=== PATIENT | male | born 1985 | race American Indian/Alaskan Native ===

== ENCOUNTER 2018-09-13 00:42 | Emergency (ER) | payer OTHER ==
[2018-09-13] MEDS ORDERED: NACL 0.9% 1000 ML 1,000 ML IV ONE (01:32)
[2018-09-13 01:59] LABS: Basophils % (Auto) 0.3 % (0.0-1.8); Eosinophils # (Auto) 0.3 K/mm3 (0.0-0.4); Eosinophils % (Auto) 5.6 % (0.0-4.3); Hematocrit 37.8 % (35.5-45.6); Hemoglobin 12.3 gm/dl (11.8-15.2); Lymphocytes # (Auto) 1.6 K/mm3 (1.2-5.4); Lymphocytes % (Auto) 30.5 % (13.4-35.0); Mean Corpuscular HGB Conc 33 % (32-34); Mean Corpuscular Volume 83 fl (84-94); Monocytes # (Auto) 0.5 K/mm3 (0.0-0.8); Monocytes % (Auto) 9.2 % (0.0-7.3); Platelet Count 274 K/mm3 (140-440); Red Blood Count 4.55 M/mm3 (3.65-5.03); Red Cell Distribution Width 14.1 % (13.2-15.2)
[2018-09-13 02:15] LABS: Alanine Aminotransferase 10 units/L (7-56); Albumin 3.4 g/dL (3.9-5); BUN/Creatinine Ratio 10; Blood Urea Nitrogen 7 mg/dL (9-20); Calcium 8.8 mg/dL (8.4-10.2); Hemolysis Index 11
[2018-09-13 02:39] LABS: Bilirubin,Urine NEG (Negative); Blood,Urine NEG (Negative); Color,Urine Straw (Yellow); Protein,Urine <15 mg/dL mg/dL (Negative); RBC,Urine < 1.0 /HPF (0.0-6.0); Urobilinogen,Urine < 2.0 mg/dL (<2.0)
[2018-09-13 02:55] LABS: WBC,Urine < 1.0 /HPF (0.0-6.0)
--- NOTE | 2018-09-13 09:36 | Emergency Department Report ---
ED Abdominal Pain HPI - General Chief Complaint: Abdominal Pain Stated Complaint: CHEST PAIN/HEADACHE Time Seen by Provider: 09/13/18 09:14 Source: patient Mode of arrival: Ambulatory Limitations: No Limitations - History of Present Illness Initial Comments: Mr. Florez is a very pleasant 33-year-old male with a history of chronic rectal pain for 2-3 years. He explained to me that for 2-3 years he had daily rectal pain with intermittent rectal discharge and bleeding. He now has a job which provides health insurance. He was evaluated by my colleague last fall. He was referred to Dr. Kay postpartum nurse at [place]. After colonscopy, Dr. Merissa duncan gave Mr. Florez of Crohn disease. He is awaiting MRI to be performed this week for further evaluation. Diagnosis: rectal abscess with rectal hemorrhoids. He finished a course of antibiotics. Has severe recurrent pain in the rectal region. Denies fever. He also has mild left flank left upper abdominal crampy pain. Headache generalized mild frontal headache which he attributes to general illness. Prior to receiving medical care, he self treated with vegetarian diet. His new job requires him to lift heavy loads > 100 pounds. No significant family history MD Complaint: abdominal pain, other (rectal pain) -: year(s) (2-3) Location: L flank Radiation: none Severity: severe Severity scale (0 -10): 8 Quality: cramping, sharp Consistency: constant Improves With: nothing Worsens With: bowel movement Associated Symptoms: constipation - Related Data Previous Rx's Medication Instructions Recorded Last Taken Type Ciprofloxacin HCl [Cipro] 500 mg PO BID #20 tablet 07/04/18 Unknown Rx Hydrocortisone [Anusol-Hc] 1 applic RC BID #30 cream..g. 07/04/18 Unknown Rx metroNIDAZOLE [Flagyl] 500 mg PO Q12HR #20 tab 07/04/18 Unknown Rx Docusate Sodium [Colace] 100 mg PO BID 10 Days #20 capsule 09/13/18 Unknown Rx HYDROcodone/ACETAMINOPHEN [[place] 1 each PO Q6H #10 tablet 09/13/18 Unknown Rx 5-325 Tablet] Prednisone [predniSONE 10 mg 10 mg PO .TAPER #1 tab.ds.pk 09/13/18 Unknown Rx (6-Day Pack, 21 Tabs)] Allergies Allergy/AdvReac Type Severity Reaction Status Date / Time Penicillins Allergy Hives Verified 07/04/18 20:29 ED Review of Systems ROS: Stated complaint: CHEST PAIN/HEADACHE Other details as noted in HPI Comment: All other systems reviewed and negative Constitutional: denies: fever, malaise Respiratory: denies: cough Cardiovascular: denies: chest pain ED Past Medical Hx - Past Medical History Previous Medical History?: No - Surgical History Past Surgical History?: Yes Additional Surgical History: rectal abcess - Social History Smoking Status: Never Smoker Substance Use Type: Alcohol - Medications Home Medications: Home Medications Medication Instructions Recorded Confirmed Last Taken Type Ciprofloxacin HCl [Cipro] 500 mg PO BID #20 tablet 07/04/18 Unknown Rx Hydrocortisone [Anusol-Hc] 1 applic RC BID #30 cream..g. 07/04/18 Unknown Rx metroNIDAZOLE [Flagyl] 500 mg PO Q12HR #20 tab 07/04/18 Unknown Rx Docusate Sodium [Colace] 100 mg PO BID 10 Days #20 capsule 09/13/18 Unknown Rx HYDROcodone/ACETAMINOPHEN [[place] 1 each PO Q6H #10 tablet 09/13/18 Unknown Rx 5-325 Tablet] Prednisone [predniSONE 10 mg 10 mg PO .TAPER #1 tab.ds.pk 09/13/18 Unknown Rx (6-Day Pack, 21 Tabs)] ED Physical Exam - General Limitations: No Limitations General appearance: alert, in no apparent distress - Head Head exam: Present: atraumatic, normocephalic - Eye Eye exam: Present: normal appearance - ENT ENT exam: Present: mucous membranes moist - Neck Neck exam: Present: normal inspection, full ROM. Absent: tenderness, meningismus - Respiratory Respiratory exam: Present: normal lung sounds bilaterally. Absent: respiratory distress, wheezes, rales, rhonchi - Cardiovascular Cardiovascular Exam: Present: regular rate, normal rhythm, normal heart sounds. Absent: systolic murmur, diastolic murmur, rubs, gallop - GI/Abdominal GI/Abdominal exam: Present: soft, normal bowel sounds. Absent: distended, tenderness, guarding, rebound - Rectal Rectal exam: Present: hemorrhoids, other (3 large rectal hemorrhoids, no gross blood +rectal tenderness) - Extremities Exam Extremities exam: Present: normal inspection - Back Exam Back exam: Present: normal inspection - Neurological Exam Neurological exam: Present: alert, oriented X3 - Psychiatric Psychiatric exam: Present: normal affect, normal mood - Skin Skin exam: Present: warm, dry, intact, normal color. Absent: rash ED Course Vital Signs 09/13/18 09/13/18 09/13/18 01:28 05:27 08:30 Temperature 97.7 F 98.0 F Pulse Rate 62 58 L 52 L Respiratory 18 18 Rate Blood Pressure 120/73 120/79 Blood Pressure 121/71 [Left] O2 Sat by Pulse 99 100 Oximetry ED Medical Decision Making - Lab Data Result diagrams: 09/13/18 01:39 09/13/18 01:39 - Medical Decision Making I review labs. Within normal limits. Mr. Florez presents with rectal pain proctitis due to Crohn's disease, also has rectal discomfort due to large hemorrhoids external Prescribed prednisone, Colace and [place]. Mr. Florez has follow-up with GI specialist Dr. Kay previously scheduled. Critical care attestation.: If time is entered above; I have spent that time in minutes in the direct care of this critically ill patient, excluding procedure time. ED Disposition Clinical Impression: Crohn's proctitis, Hemorrhoids, external Disposition: [id number] TO HOME OR SELFCARE Is pt being admited?: No Does the pt Need Aspirin: No Condition: Stable Instructions: Proctitis (ED), Crohn Disease (ED), Hemorrhoids (ED) Prescriptions: Docusate Sodium [Colace] 100 mg PO BID 10 Days #20 capsule HYDROcodone/ACETAMINOPHEN [[place] 5-325 Tablet] 1 each PO Q6H #10 tablet Prednisone [predniSONE 10 mg (6-Day Pack, 21 Tabs)] 10 mg PO .TAPER #1 tab.ds.pk Forms: Work/School Release Form(ED)
[2018-09-13 09:54] VITALS: BP 119/74
== END 2018-09-13 09:54 | disposition home or self-care (01) ==
LOC: ED 00:42
DX: K50.90 Crohn's disease, unspecified, without complications (principal); K62.89 Other specified diseases of anus and rectum; K64.4 Residual hemorrhoidal skin tags; Z88.0 Allergy status to penicillin
CPT/HCPCS: 36415; 80053; 81001; 85025; 93005; 93010